=== PATIENT | female | born 1960 | race Caucasian/White ===

== ENCOUNTER 2021-10-09 04:18 | Inpatient (IN) | payer BC, SELFPAY ==
[2021-10-09] VITALS (13 sets, daily range): BP systolic 113–139; BP diastolic 60–76; PULSE 84–110; RESP 12–23; TEMP 36.4–36.8; O2SAT 95–100; BMI 23.2
--- NOTE | ~2021-10-09 | XR_ITS ---
EXAMINATION: XR CHEST CLINICAL INFORMATION: Rule out pneumonia COMPARISON: 09/03/2019 TECHNIQUE: Frontal view of the chest was obtained. FINDINGS: The lungs are well expanded. There is no focal consolidation, edema, or effusion. No pneumothorax. The cardiomediastinal silhouette is within normal limits. No acute osseous abnormality. XR/XR chest 1V IMPRESSION: Clear lungs
--- NOTE | ~2021-10-09 | CT_ITS ---
EXAMINATION: CT ABDOMEN AND PELVIS WITHOUT CONTRAST CLINICAL INFORMATION: UTI. Sepsis COMPARISON: None TECHNIQUE: Multidetector volumetric imaging was performed from the superior aspect of the liver through the pubic symphysis. Sagittal and coronal reformatted images were obtained on the technologist's workstation. This CT examination was performed using dose optimization techniques as appropriate, variously including the following: *Automated exposure control *Adjustment of mA and/or kV according to patient size (this includes techniques or standardized protocols for targeted exams where dose is matched to indication/reason for exam; i.e. extremities or head) *Use of iterative reconstruction technique DLP: 410 mGy-cm FINDINGS: LUNG BASES: The visualized lung bases are unremarkable. LIVER, GALLBLADDER, AND BILIARY TREE: Prominent liver noted with slightly cirrhotic contour and perihepatic ascites. No focal hepatic lesion. Liver does appear prominent. I do not see any intrahepatic biliary dilatation. Gallbladder surgically absent. PANCREAS: Unremarkable. SPLEEN: Prominent spleen but no splenic lesions or perisplenic collections. ADRENAL GLANDS: Slight thickening of the left adrenal. Adrenals otherwise unremarkable. KIDNEYS AND URETERS: No right or left hydronephrosis or calcification. Fat density lesion in the mid right kidney at 12 mm likely an angiomyolipoma. BLADDER: Bladder is distended. Air in the bladder is likely iatrogenic. As the patient recently been catheterized? GASTROINTESTINAL TRACT: There is no bowel obstruction or right or left lower quadrant inflammatory change. ABDOMINAL WALL: No significant hernia is appreciated. LYMPH NODES: Normal. VASCULAR: Aorta atherosclerotic but nonaneurysmal. PELVIC VISCERA: Uterus and adnexal structures unremarkable. No ascites deep in the pelvis. OSSEOUS STRUCTURES: Multilevel degenerative change. CT/CT abdomen pelvis wo con IMPRESSION: Distended bladder. Air in the bladder likely iatrogenic. Please correlate with recent catheterization history. Perihepatic ascites and cirrhotic appearing liver. No hydronephrosis. Fleischner guidelines were followed.
--- NOTE | 2021-10-09 04:38 | ECG_ITS ---
Test Reason : weakness Blood Pressure : / mmHG Vent. Rate : 102 BPM Atrial Rate : 102 BPM P-R Int : 150 ms QRS Dur : 088 ms QT Int : 334 ms P-R-T Axes : 054 006 037 degrees QTc Int : 435 ms Sinus tachycardia Otherwise normal ECG When compared with ECG of 03-SEP-2019 17:07, No significant change was found Referred By: Peggy Heart Electronically Signed By:Italo Sylvester
--- NOTE | 2021-10-09 05:12 | ED_ITS ---
HPI - General Adult General Chief complaint: Weakness Stated complaint: diabetic, high sugar, vomiting Time Seen by Provider: 10/09/21 04:38 Source: patient Mode of arrival: ambulatory Limitations: no limitations History of Present Illness HPI narrative: Patient comes to the emergency room complaining of nausea, vomiting, feeling weak. Patient states her blood sugars are ?all over the place? anywhere between 70 to 300+. Patient uses Lantus and Humalog. Patient states she is compliant with her insulin treatment. Patient has been dealing nausea and vomiting and labile blood sugars for several months. Patient states that her abdomen feels upset, no significant pain. No diarrhea. Patient denies UTI symptoms. Patient states that she has been coughing recently more than usual. Related Data Previous Rx's Medication Instructions Recorded cefuroxime axetil 500 mg tablet 500 mg PO BID #14 tabs 10/09/21 ondansetron HCl 4 mg tablet 4 mg PO Q6H PRN nausea and 10/09/21 vomiting #14 tabs Allergies Allergy/AdvReac Type Severity Reaction Status Date / Time No Known Allergies Allergy Unverified 12/22/19 17:08 [No Known Allergies*] Review of Systems Review of Systems: Constitutional : No Weight loss, No Fever, No Chills, No Night Sweats, No Fatigue, No Malaise ENT/Mouth : No Hearing loss, No Ear Pain, No Nasal Congestion, No Sinus Pain, No Hoarseness, No sore throat, No Rhinorrhea, No Swallowing Difficulty Eyes: No Eye Pain, No Swelling, No Redness, No Foreign Body, No Discharge, No Vision Changes Cardiovascular : No Chest Pain, No SOB, No Dyspnea on Exertion, No Orthopnea, No Edema, No Palpitations Respiratory : Complaining of new onset cough No Sputum, No Wheezing, No Smoke Exposure, No Dyspnea Gastrointestinal : Complaining of nausea vomiting, complaining of an upset stomach sedation, No Diarrhea, No Constipation, No abdominal Pain, No Hematochezia, No Melena Genitourinary : no irregular bleeding, No Dysuria, No Urinary Frequency, No Hematuria, No Urinary Incontinence, No Urgency, No Flank Pain, No Urinary Flow Changes, No Hesitancy Musculoskeletal : No joint pain, No Myalgias, No Joint Swelling Skin : No Skin Lesions, No rash Neuro : No Weakness, No Numbness, No Paresthesias, No Loss of Consciousness, No Dizziness, No Headache Psych : No Anxiety/Panic, No Depression, No SI/HI/AH/VH, No Social Issues, Heme/Lymph: No Bruising, No Bleeding,No Lymphadenopathy Endocrine : No Polyuria, No Polydipsia, No Temperature Intolerance, complaining of her sugars being labile [facility] Past Medical History Medical History Diabetes Social History Social History Advance Directives: No Physical Exam ED Vital Signs: Vital Signs - 24 hr 10/09/21 04:31 10/09/21 05:07 Temperature 97.5 F 97.9 F Pulse Rate 110 H 98 Respiratory Rate 20 18 Blood Pressure 130/75 132/71 Pulse Oximetry 99 99 Oxygen Delivery Method Room Air Room Air BMI result Body Mass Index 23.2 Const Other: Appearance: Alert. Oriented X3. No acute distress. Seems nauseous Eyes: Pupils equal, round and reactive to light. ENT: Pharynx normal. Neck: Normal inspection. Neck supple. No lymph nodes noted. No crepitus CVS: Normal heart rate and rhythm. Pulses normal. Normal S1 and S2 Respiratory: No respiratory distress. Breath sounds normal. No Wheezing. No rales Abdomen: Soft and nontender. No rigidity. No distention. Skin: Skin warm and dry. Normal skin color. Normal skin turgor. Multiple ecchymoses in abdomen from insulin injections. Extremities: No lower extremity edema. No Lacerations. No Rash Neuro: Oriented X 3. No motor deficit. No sensory deficit. Moving all extremities. No slurred speech. CN 2 through 12 grossly intact Psych: calm, cooperative, normal affect Course Course Course Narrative: On arrival to the emergency room, patient's blood sugar is 181. Labs and Imaging are pending. Patient will be getting IV fluids and Phenergan IV. Chest x-ray negative. Patient has KWADWO, weakness, vomiting, UTI. I discussed with the patient that I recommend admission. Patient states that she would prefer to go home and try medications at home. Patient states that if she feels worse, she will return to the emergency room. Patient is concerned that she used all of her sick time at work. I discussed with the patient that she will have a work note, and does not need to worry about this. Patient is hesitant to be admitted. Plan for now is to administer more fluids, start ceftriaxone IV. After 2 L of normal saline we will recheck the creatinine function. If patient's creatinine level improves and if she is able to tolerate p.o., we will try sending her home sign out given to Dr. Peña Medical Decision Making Lab Data Result diagrams: 10/09/21 05:23 10/09/21 05:23 Labs: Lab Results 10/09/21 10/09/21 10/09/21 Range/Units 05:23 05:23 05:23 WBC 8.0 (4.8-10.8) X10*3/uL RBC 3.68 L (4.20-5.50) X10*6/uL Hgb 12.5 (12.0-16.0) g/dl Hct 36.1 L (37.0-47.0) % MCV 98.1 H (80.0-98.0) fL MCH 34.0 H (27.0-33.0) pg MCHC 34.6 (31.0-35.0) g/dl RDW 14.6 (11.0-16.0) % Plt Count 72 L (160-400) X10*3/uL MPV 10.7 (9.4-12.3) fL Immature Gran % (Auto) 0.4 (0.0-0.4) % Neut % (Auto) 68.1 (45-73) % Lymph % (Auto) 19.9 L (20-40) % [place] % (Auto) 10.6 (2-11) % Eos % (Auto) 0.5 (0-4) % Baso % (Auto) 0.5 (0-2) % Lymph # (Auto) 1.6 (1.2-4.9) X10*3/uL [place] # (Auto) 0.9 (0.1-1.2) X10*3/uL Eos # (Auto) 0.0 (0.0-0.4) X10*3/uL Baso # (Auto) 0.0 (0.0-0.2) X10*3/uL Abs Immat Gran (auto) 0.03 (0.00-0.03) X10*3/uL Absolute Neuts (auto) 5.5 (2.0-8.3) x10*3/uL Absolute Nucleated RBC 0.000 (0.0-0.012) X10*3/uL Nucleated RBC % (auto) 0.0 (0.0-0.2) /100WBC Sodium 133 L (135-145) mmol/L Potassium 4.1 (3.3-5.1) mmol/L Chloride 95 L (96-108) mmol/L Carbon Dioxide 23 (22-29) mmol/L Anion Gap 19 (12-20) BUN 38 H (9-16) mg/dL Creatinine 2.38 H (0.5-1.4) mg/dL Estim Creat Clear Calc 20.1 Estimated GFR 21 Random Glucose 210 H (60-115) mg/dL Calcium 9.9 (8.4-10.2) mg/dL Total Bilirubin 1.3 H (0.0-1.0) mg/dL Direct Bilirubin 0.8 H (0.0-0.5) mg/dL AST 169 H (5-31) U/L ALT 60 H (0-31) U/L Alkaline Phosphatase 268 H (39-117) U/L Troponin I High Sens 4.5 (<3.5-17.0) ng/L Total Protein 8.6 H (6.5-8.0) g/dL Albumin 3.5 (3.5-5.0) g/dL Urine Color Urine Appearance Urine pH (5.0-8.0) Ur Specific [place] (1.005-1.025) Urine Protein (NEG-TRACE) MG/DL Urine Glucose (UA) (NEG) MG/DL Urine Ketones (NEG) MG/DL Urine Blood (NEG) Urine Nitrite (NEG) Ur Leukocyte Esterase (NEG) Urine RBC (0) /HPF Urine WBC (0-4) /HPF Ur Squamous Epith Cells /LPF Urine Bacteria /LPF Urine Mucus /LPF Acetone, Qual (Negative) COVID-19 (SRI) (Negative) COVID-19 Clin Com 10/09/21 10/09/21 10/09/21 Range/Units 05:23 05:23 06:11 WBC (4.8-10.8) X10*3/uL RBC (4.20-5.50) X10*6/uL Hgb (12.0-16.0) g/dl Hct (37.0-47.0) % MCV (80.0-98.0) fL MCH (27.0-33.0) pg MCHC (31.0-35.0) g/dl RDW (11.0-16.0) % Plt Count (160-400) X10*3/uL MPV (9.4-12.3) fL Immature Gran % (Auto) (0.0-0.4) % Neut % (Auto) (45-73) % Lymph % (Auto) (20-40) % [place] % (Auto) (2-11) % Eos % (Auto) (0-4) % Baso % (Auto) (0-2) % Lymph # (Auto) (1.2-4.9) X10*3/uL [place] # (Auto) (0.1-1.2) X10*3/uL Eos # (Auto) (0.0-0.4) X10*3/uL Baso # (Auto) (0.0-0.2) X10*3/uL Abs Immat Gran (auto) (0.00-0.03) X10*3/uL Absolute Neuts (auto) (2.0-8.3) x10*3/uL Absolute Nucleated RBC (0.0-0.012) X10*3/uL Nucleated RBC % (auto) (0.0-0.2) /100WBC Sodium (135-145) mmol/L Potassium (3.3-5.1) mmol/L Chloride (96-108) mmol/L Carbon Dioxide (22-29) mmol/L Anion Gap (12-20) BUN (9-16) mg/dL Creatinine (0.5-1.4) mg/dL Estim Creat Clear Calc Estimated GFR Random Glucose (60-115) mg/dL Calcium (8.4-10.2) mg/dL Total Bilirubin (0.0-1.0) mg/dL Direct Bilirubin (0.0-0.5) mg/dL AST (5-31) U/L ALT (0-31) U/L Alkaline Phosphatase (39-117) U/L Troponin I High Sens (<3.5-17.0) ng/L Total Protein (6.5-8.0) g/dL Albumin (3.5-5.0) g/dL Urine Color YELLOW Urine Appearance CLOUDY Urine pH 7.5 (5.0-8.0) Ur Specific [place] 1.015 (1.005-1.025) Urine Protein 2+ H (NEG-TRACE) MG/DL Urine Glucose (UA) 250 H (NEG) MG/DL Urine Ketones NEG (NEG) MG/DL Urine Blood 3+ H (NEG) Urine Nitrite NEG (NEG) Ur Leukocyte Esterase 3+ H (NEG) Urine RBC 1-4 (0) /HPF Urine WBC 76-150 H (0-4) /HPF Ur Squamous Epith Cells 2+ /LPF Urine Bacteria 4+ /LPF Urine Mucus TRACE /LPF Acetone, Qual Negative (Negative) COVID-19 (SRI) Negative (Negative) COVID-19 Clin Com See Note Imaging Data Chest x-ray: Radiologist's impression: INDINGS: The lungs are well expanded. There is no focal consolidation, edema, or effusion. No pneumothorax. The cardiomediastinal silhouette is within normal limits. No acute osseous abnormality. XR/XR chest 1V IMPRESSION: Clear lungs ? Discharge Plan Discharge Clinical Impression: UTI (urinary tract infection), KWADWO (acute kidney injury), Weakness Patient Disposition: Still a Patient Instructions: Acute Kidney Injury (DC), Urinary Tract Infection in Women (ED) Additional Instructions: Please follow-up with your primary care physician tomorrow. If you have any worsening or new symptoms, please return to the emergency room or call 911 Prescriptions: New cefuroxime axetil 500 mg tablet 500 mg PO BID Qty: 14 0RF ondansetron HCl 4 mg tablet 4 mg PO Q6H PRN (Reason: nausea and vomiting) Qty: 14 0RF
[2021-10-09 05:29] LABS: Basophils Percent Auto 0.5 % (0-2); Eosinophils Percent Auto 0.5 % (0-4); Hematocrit 36.1 % (37.0-47.0); Hemoglobin 12.5 g/dl (12.0-16.0); Imm Gran Abs Auto 0.03 X10*3/uL (0.00-0.03); Imm Gran Pct Auto 0.4 % (0.0-0.4); Lymphocytes Absolute Auto 1.6 X10*3/uL (1.2-4.9); Lymphocytes Percent Auto 19.9 % (20-40); Mean Corpuscular HGB Conc 34.6 g/dl (31.0-35.0); Mean Corpuscular Volume 98.1 fL (80.0-98.0); Mean Platelet Volume 10.7 fL (9.4-12.3); Monocytes Absolute Auto 0.9 X10*3/uL (0.1-1.2); Monocytes Percent Auto 10.6 % (2-11); Neutrophils Absolute Auto 5.5 x10*3/uL (2.0-8.3); Neutrophils Percent Auto 68.1 % (45-73); Red Blood Count 3.68 X10*6/uL (4.20-5.50); Red Cell Distribution Width 14.6 % (11.0-16.0)
[2021-10-09 05:30] LABS: MANUAL DIFF FLAG NO; Platelet Count 72 X10*3/uL (160-400)
[2021-10-09] MEDS: 0.9 % Sodium Chloride 1,000 ML 999 ML IVCONT ×2 (05:40→08:37)
[2021-10-09 05:43] LABS: COVID-19 Test Negative (Negative)
[2021-10-09 05:48] LABS: Acetone, serum QL Negative (Negative)
[2021-10-09 05:49] LABS: Alanine Aminotransferase 60 U/L (0-31); Albumin Level 3.5 g/dL (3.5-5.0); Alkaline Phosphatase 268 U/L (39-117); Anion Gap 19 (12-20); Aspartate Amino Transferase 169 U/L (5-31); Bilirubin Direct 0.8 mg/dL (0.0-0.5); Bilirubin Total 1.3 mg/dL (0.0-1.0); Blood Urea Nitrogen 38 mg/dL (9-16); Calcium 9.9 mg/dL (8.4-10.2); Carbon Dioxide 23 mmol/L (22-29); Chloride 95 mmol/L (96-108); Creatinine Clr Calc Pharmacy 20.1; Estimated Glomerular Filt Rate 21; Glucose Random 210 mg/dL (60-115); Potassium 4.1 mmol/L (3.3-5.1); Sodium 133 mmol/L (135-145); Total Protein 8.6 g/dL (6.5-8.0)
[2021-10-09 05:50] LABS: Troponin-I High Sensitivity 4.5 ng/L (<3.5-17.0)
[2021-10-09 06:17] LABS: Appearance Urine CLOUDY; Color Urine YELLOW; Glucose Urine UA 250 MG/DL (NEG); Leukocyte Esterase Urine 3+ (NEG); Nitrite Urine NEG (NEG); PH 7.5 (5.0-8.0); Specific Gravity - Urine 1.015 (1.005-1.025); UACC Culture Trigger YES; Urine Blood 3+ (NEG); Urine Ketones NEG (NEG); Urine Protein 2+ MG/DL (NEG-TRACE)
[2021-10-09 06:23] LABS: Bacteria Urine 4+ /LPF; Mucus Urine TRACE /LPF; Squamous Epithelial Cell Urine 2+ /LPF
[2021-10-09] MEDS: cefTRIAXone sodium 1 GM in 0.9 % Sodium Chloride 50 ML IV (06:37)
--- NOTE | 2021-10-09 06:53 | PC.NURSE ---
Rocephin IV was administered per MD order. Approximately 30 minutes after Rocephine was initiated blood cultures were requested. Therefore, IV Abx were initiated prior to obtaining blood cultures.
[2021-10-09 07:04] LABS: Glucose, Whole Blood 181 mg/dL (60-115)
[2021-10-09 08:28] LABS: Anion Gap 16 (12-20); Blood Urea Nitrogen 35 mg/dL (9-16); Carbon Dioxide 24 mmol/L (22-29); Chloride 99 mmol/L (96-108); Creatinine Clr Calc Pharmacy 21.8; Estimated Glomerular Filt Rate 23; Glucose Random 209 mg/dL (60-115); Potassium 4.2 mmol/L (3.3-5.1); Sodium 135 mmol/L (135-145)
[2021-10-09 08:32] LABS: Lactic Acid 4.2 mmol/L (0.5-2.0)
[2021-10-09] MEDS: ondansetron HCL 4 MG/2 ML VIAL IVPUSH (08:46)
--- NOTE | 2021-10-09 08:47 | PC.NURSE ---
pt vomiting and noteable tremors. spoke with dr todd and he is aware of current status, pt appears to be in withdrawal, her POC was 210. IV fluids are infusing
[2021-10-09] MEDS: Famotidine/PF 20 MG/2 ML VIAL IVPUSH (09:02)
[2021-10-09] MEDS: LORazepam 2 MG/ML VIAL 1 MG IVPUSH (09:02)
--- NOTE | 2021-10-09 09:31 | PC.NURSE ---
up with assistance to bedside commode void approx 500ml
[2021-10-09] MEDS: Piperacillin Sodium/Tazobactam 3.375 GM in 0.9 % Sodium Chloride 50 ML IV (09:43)
[2021-10-09 09:45] LABS: Reflex Lactate? Lactic Acid Added
[2021-10-09 10:30] LABS: ~Lactic Acid-LAB USE ONLY 3.8 mmol/L (0.5-2.0)
--- NOTE | 2021-10-09 10:43 | P.HPHOSP_ITS ---
History of Present Illness Date of Service: 10/09/21 Chief Complaint: labile blood sugars This is a 60 yo F with a PMH of daily alcohol use, cirrhosis by imaging, IDDM, HLD who presents to [facility] ED with complaints of labile blood sugars (many HIGH readings and many low in the 40-60s) with associated urinary frequency and foul smelling urine. She initially denied any symptoms to the ED providers, but when queried re: positive UA -- she endorsed positive symptoms. She reports that in addition to the symptoms, she also has had difficulty keeping food down and this has been on going for a few months. She reports that there is no abdominal pain, but rather just feeling full and nauseous. She reports decreased oral intake for solids, but is able to keep liquids down. She denies any hematemesis or diarrhea. She denies any fevers or chills. She reports she does not drink much. Upon further questioning, she endorses few shorts of spirits a few beers daily. She denies withdrawal symptoms. She reports she has been told she has cirrhosis. Work up in the ED revealed a positive UA and CT scan showing air in the bladder. She has KWADWO as well. She will be admitted for further treatment. Review of Systems Review of Systems: negative except HPI [facility] Medical History (Updated 10/09/21 @ 10:55 by Valentin Morgan MD) Cirrhosis Diabetes Hyperlipidemia Pertinent family history: Denies any known FH Surgical History (Updated 10/09/21 @ 10:56 by Valentin Morgan MD) History of cholecystectomy Social History Alcohol intake: current Alcohol intake frequency: 3 or more drinks per day Alc ohol type: beer and hard liquor Use of substances other than those prescribed or required for medical reasons: No Substance Use Type: Marijuana Substance Use Frequency: Occasionally Any prior treatment program specific to substance use: No Advance Directives: No Patient : No Meds Allergies Allergy/AdvReac Type Severity Reaction Status Date / Time No Known Allergies Allergy Unverified 12/22/19 17:08 [No Known Allergies*] Active Medications: Current Medications Pharmacy Consult (Consult Rx Perform Med Rec) 1 each MISCELLANE ONCE PRN PRN Reason: Consult order Physical Exam Vital Signs and Narrative: Vital Signs: Last Vital Signs Temp 98.3 F 10/09/21 06:54 Pulse 86 10/09/21 10:12 Resp 14 10/09/21 10:12 BP 129/73 10/09/21 10:12 Pulse Ox 100 10/09/21 10:12 O2 Del Method 10/09/21 10:12 BMI result Body Mass Index 23.2 Const: Other: Constitutional - Awake and Alert, No apparent distress Eyes - PERRLA, EOMI Cardiovascular - S1S2, RRR, No edema Respiratory - Normal lung expansion, Normal respiratory effort, No respiratory distress, CTA bilaterally Gastrointestinal - NT / ND; +BS; No rebound or guarding - No CVA tenderness Extremities - no calf tenderness bilaterally, no swelling Musculoskeletal - Normal inspection, normal ROM Skin - Warm/Dry Neurological - Alert & oriented x3, No focal deficit Psychological - Appropriate affect Results Labs CBC and Chem 7: 10/09/21 05:23 10/09/21 07:40 Labs: Laboratory Results - last 24 hr 10/09/21 10/09/21 10/09/21 04:24 05:23 05:23 MCV 98.1 H MCH 34.0 H MCHC 34.6 RDW 14.6 Plt Count 72 L MPV 10.7 Immature Gran % (Auto) 0.4 Neut % (Auto) 68.1 Lymph % (Auto) 19.9 L [place] % (Auto) 10.6 Eos % (Auto) 0.5 Baso % (Auto) 0.5 Lymph # (Auto) 1.6 [place] # (Auto) 0.9 Eos # (Auto) 0.0 Baso # (Auto) 0.0 Abs Immat Gran (auto) 0.03 Absolute Neuts (auto) 5.5 Absolute Nucleated RBC 0.000 Nucleated RBC % (auto) 0.0 Anion Gap 19 Estim Creat Clear Calc 20.1 Estimated GFR 21 POC Glucose 181 H Random Glucose 210 H Lactic Acid Lactic Acid F/U @ 2Hr Calcium 9.9 Total Bilirubin 1.3 H Direct Bilirubin 0.8 H AST 169 H ALT 60 H Alkaline Phosphatase 268 H Troponin I High Sens Total Protein 8.6 H Albumin 3.5 Urine Color Urine Appearance Urine pH Ur Specific [place] Urine Protein Urine Glucose (UA) Urine Ketones Urine Blood Urine Nitrite Ur Leukocyte Esterase Urine RBC Urine WBC Ur Squamous Epith Cells Urine Bacteria Urine Mucus Acetone, Qual COVID-19 (SRI) COVID-19 Clin Com 10/09/21 10/09/21 10/09/21 05:23 05:23 05:23 MCV MCH MCHC RDW Plt Count MPV Immature Gran % (Auto) Neut % (Auto) Lymph % (Auto) [place] % (Auto) Eos % (Auto) Baso % (Auto) Lymph # (Auto) [place] # (Auto) Eos # (Auto) Baso # (Auto) Abs Immat Gran (auto) Absolute Neuts (auto) Absolute Nucleated RBC Nucleated RBC % (auto) Anion Gap Estim Creat Clear Calc Estimated GFR POC Glucose Random Glucose Lactic Acid Lactic Acid F/U @ 2Hr Calcium Total Bilirubin Direct Bilirubin AST ALT Alkaline Phosphatase Troponin I High Sens 4.5 Total Protein Albumin Urine Color Urine Appearance Urine pH Ur Specific [place] Urine Protein Urine Glucose (UA) Urine Ketones Urine Blood Urine Nitrite Ur Leukocyte Esterase Urine RBC Urine WBC Ur Squamous Epith Cells Urine Bacteria Urine Mucus Acetone, Qual Negative COVID-19 (SRI) Negative COVID-19 Clin Com See Note 10/09/21 10/09/21 10/09/21 06:11 07:40 07:40 MCV MCH MCHC RDW Plt Count MPV Immature Gran % (Auto) Neut % (Auto) Lymph % (Auto) [place] % (Auto) Eos % (Auto) Baso % (Auto) Lymph # (Auto) [place] # (Auto) Eos # (Auto) Baso # (Auto) Abs Immat Gran (auto) Absolute Neuts (auto) Absolute Nucleated RBC Nucleated RBC % (auto) Anion Gap 16 Estim Creat Clear Calc 21.8 Estimated GFR 23 POC Glucose Random Glucose 209 H Lactic Acid 4.2 H* Lactic Acid F/U @ 2Hr Calcium 9.0 D Total Bilirubin Direct Bilirubin AST ALT Alkaline Phosphatase Troponin I High Sens Total Protein Albumin Urine Color YELLOW Urine Appearance CLOUDY Urine pH 7.5 Ur Specific [place] 1.015 Urine Protein 2+ H Urine Glucose (UA) 250 H Urine Ketones NEG Urine Blood 3+ H Urine Nitrite NEG Ur Leukocyte Esterase 3+ H Urine RBC 1-4 Urine WBC 76-150 H Ur Squamous Epith Cells 2+ Urine Bacteria 4+ Urine Mucus TRACE Acetone, Qual COVID-19 (SRI) COVID-19 Clin Com 10/09/21 10:04 MCV MCH MCHC RDW Plt Count MPV Immature Gran % (Auto) Neut % (Auto) Lymph % (Auto) [place] % (Auto) Eos % (Auto) Baso % (Auto) Lymph # (Auto) [place] # (Auto) Eos # (Auto) Baso # (Auto) Abs Immat Gran (auto) Absolute Neuts (auto) Absolute Nucleated RBC Nucleated RBC % (auto) Anion Gap Estim Creat Clear Calc Estimated GFR POC Glucose Random Glucose Lactic Acid Lactic Acid F/U @ 2Hr 3.8 H* Calcium Total Bilirubin Direct Bilirubin AST ALT Alkaline Phosphatase Troponin I High Sens Total Protein Albumin Urine Color Urine Appearance Urine pH Ur Specific [place] Urine Protein Urine Glucose (UA) Urine Ketones Urine Blood Urine Nitrite Ur Leukocyte Esterase Urine RBC Urine WBC Ur Squamous Epith Cells Urine Bacteria Urine Mucus Acetone, Qual COVID-19 (SRI) COVID-19 Clin Com Imaging Radiologist's Impressions: Impressions Chest X-Ray 10/09/21 05:49 IMPRESSION: Clear lungs Abdomen/Pelvis CT 10/09/21 09:05 IMPRESSION: Distended bladder. Air in the bladder likely iatrogenic. Please correlate with recent catheterization history. Perihepatic ascites and cirrhotic appearing liver. No hydronephrosis. Fleischner guidelines were followed. Assessment and Plan (1) KWADWO (acute kidney injury): Status: Acute (2) UTI (urinary tract infection): Status: Acute Plan This is a 60 yo F with a PMH of IDDM, Cirrhosis, Daily alcohol use, HLD who presents to the ED with labile blood sugars. Her work up reveals UTI and KWADWO. She will be admitted for further work up and treatment. 1. Acute Kidney Injury LR @ 100 cc/hr x 2L repeat chem tomorrow 2. UTI IV rocephin patient does not have severe sepsis at this time 3. Lactic acidosis possiblye secondary to liver disease trend 4. Alcoholi liver disease evidence of cirrhosis on imaging low platelets and elevated LFTs likely secondary to this 5. DM Basal+bolus patient endorses poor oral intake on going for several months; will see how her PO intake it. May need to evaluate for diabetic gastroparesis basal+bolus (med rec pending) 6. Alcohol abuse and dependence denies prior withdrawal symptoms, but appears anxious. Will monitor with CIWA for now and start phenobarb if she starts to exhibit withdrawal symptoms. Patient does not seem to think the amouth of alcohol she drinks is excessive despite evidence and knowledge of cirrhosis. Have explained to her that she needs complete alcohol cessation. Will consult CARE team. Full Code DVT pptx -- mechanical / early ambulation due to thrombocytopenia In light of the patients UTI + KWADWO -- I anticipate a medically necessary inpatient hospitalization which is likely to span at least 2 midnights for treatment and monitoring the reponse for the above mentioned conditions. This cannot be completed in a less acute setting. Quality Stroke Does the patient have a stroke diagnosis?: No VTE Prior VTE?: No VTE Risk Level:: Medical - moderate - high VTE Device Contraindication: N/A - Device Ordered VTE Drug Contraindication: Treatment Not Indicated
--- NOTE | 2021-10-09 10:46 | PC.NURSE ---
pt appears more restful. vss remain stable.
[2021-10-09] MEDS: Lactated Ringers 1,000 ML 100 ML IVCONT (11:15)
--- NOTE | 2021-10-09 11:23 | PHA.MEDREC ---
Pharmacy Consult ? Medication Reconciliation Pharmacy has completed the medication reconciliation. Spoke with patient in the ED
[2021-10-09 11:59] LABS: Glucose, Whole Blood 97 mg/dL (60-115)
[2021-10-09 12:10] LABS: Reflex Lactate? 2 Y
[2021-10-09 12:45] LABS: ~Lactic Acid-LAB USE ONLY 3.5 mmol/L (0.5-2.0)
--- NOTE | 2021-10-09 12:47 | PC.NURSE ---
pt napping periodically, she states she is feeling hungry. she has not vomited since she was medicated with ativan and zofran. she is not displaying any withdrawal sxs currently
[2021-10-09] MEDS: PHENobarbitaL 30 MG TABLET 150 MG PO ×2 (16:13→19:38)
[2021-10-09] MEDS: Piperacillin Sodium/Tazobactam 2.25 GM in 0.9 % Sodium Chloride 50 ML IV ×2 (16:14→22:28)
[2021-10-09 17:56] LABS: Glucose, Whole Blood 245 mg/dL (60-115)
[2021-10-09] MEDS: Insulin Lispro 100 UNIT/ML 3 ML VIAL SUBCUT ×2 (18:09→22:18)
--- NOTE | 2021-10-09 19:22 | PC.NURSE ---
REPORT GIVEN FOR TRANSFER TO OVERFLOW
--- NOTE | 2021-10-09 19:41 | PC.NURSE ---
pt transferred to overflow by experimental technician
[2021-10-09 22:08] LABS: Glucose, Whole Blood 271 mg/dL (60-115)
[2021-10-09] MEDS: Atorvastatin Calcium 80 MG TABLET PO (22:16)
[2021-10-09] MEDS: PHENobarbitaL 15 MG TABLET 45 MG PO (22:17)
[2021-10-09] MEDS: Insulin Glargine,Hum.rec.anlog 100 UNIT/ML 10 ML VIAL 38 UNIT SUBCUT (22:17)
[2021-10-10] VITALS: BP 111/59; PULSE 86; RESP 18; TEMP 37.1; O2SAT 98
[2021-10-10] MEDS: Lactated Ringers 1,000 ML 100 ML IVCONT (01:59)
[2021-10-10 02:04] VITALS: BMI 24.8
[2021-10-10] MEDS: Piperacillin Sodium/Tazobactam 2.25 GM in 0.9 % Sodium Chloride 50 ML IV ×4 (05:25→20:47)
[2021-10-10 06:49] LABS: Hematocrit 30.5 % (37.0-47.0); Hemoglobin 10.2 g/dl (12.0-16.0); Mean Corpuscular HGB Conc 33.4 g/dl (31.0-35.0); Mean Corpuscular Hemoglobin 34.6 pg (27.0-33.0); Mean Corpuscular Volume 103.4 fL (80.0-98.0); Red Blood Count 2.95 X10*6/uL (4.20-5.50); Red Cell Distribution Width 14.7 % (11.0-16.0); White Blood Count 3.7 X10*3/uL (4.8-10.8)
[2021-10-10 07:01] LABS: Platelet Count 33 X10*3/uL (160-400)
[2021-10-10 07:15] LABS: Anion Gap 12 (12-20); Blood Urea Nitrogen 23 mg/dL (9-16); Carbon Dioxide 23 mmol/L (22-29); Chloride 103 mmol/L (96-108); Creatinine Clr Calc Pharmacy 23.8; Estimated Glomerular Filt Rate 23; Glucose Random 160 mg/dL (60-115); Potassium 3.6 mmol/L (3.3-5.1); Sodium 134 mmol/L (135-145)
[2021-10-10 07:23] LABS: Glucose, Whole Blood 161 mg/dL (60-115)
[2021-10-10 07:36] VITALS: BP 119/72; PULSE 82; RESP 18; TEMP 35.9; O2SAT 99
[2021-10-10] MEDS: Insulin Lispro 100 UNIT/ML 3 ML VIAL SUBCUT ×4 (09:11→20:49)
[2021-10-10] MEDS: 0.9 % Sodium Chloride Flush 3 ML SYRINGE IVFLUSH ×3 (09:12→20:50)
[2021-10-10] MEDS: PHENobarbitaL 15 MG TABLET 45 MG PO ×2 (09:13→20:48)
--- NOTE | 2021-10-10 10:06 | MHC.CM.PN ---
CM met with Patient and her /HCP/Tuan @ [phone] at bedside. 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 Home/no services is the goal and CM has initiated and will follow for dc planning. PCP is Dr. Smita You and Patient has received Moderna/Covid vax X2.
--- NOTE | 2021-10-10 11:27 | HO.PM.IMPN ---
Subjective Subjective Date of Service: 10/10/21 Interval History: Seen in f/u for labile blood sugars, KWADWO that is new, UTI, pancytopenia Interval history: feels better, renal function remains high Review of Systems no fever no dysuria Physical Exam Vital Signs: Vital Signs: Last Vital Signs Temp 96.7 F L 10/10/21 07:36 Pulse 82 10/10/21 07:36 Resp 18 10/10/21 07:36 BP 119/72 10/10/21 07:36 Pulse Ox 99 10/10/21 07:36 O2 Del Method 10/10/21 07:36 BMI result Body Mass Index 24.8 Const: Other: General: AO X 3, no acute distress Resp: CTA bilateral CVS: S1,S2,RRR GI: +BS, NT, no distention Skin: No rash Neuro: motor grossly intact Psych: appropriate affect Objective Data Active Medications Atorvastatin Calcium (Atorvastatin Calcium 80 Mg Tablet) 80 mg PO BEDTIME [facility] Last Admin: 10/09/21 22:16 Dose: 80 mg Documented By: MOIZ Piperacillin Sod/Tazobactam (Sod 2.25 gm/ Sodium Chloride) 50 mls @ 100 mls/hr IV Q6H [facility] Last Infusion: 10/10/21 10:18 Dose: 0 mls/hr Documented By: KATIANA Insulin Glargine (Insulin Glargine,Hum.Rec.Anlog 100 Unit/Ml 10 Ml Vial) 38 unit SUBCUT BEDTIME [facility] Last Admin: 10/09/21 22:17 Dose: 38 unit Documented By: MOIZ Insulin Human Lispro (Insulin Lispro 100 Unit/Ml 3 Ml Vial) 0 unit SUBCUT QIDACHS [facility]; Protocol Last Admin: 10/10/21 09:11 Dose: 2 unit Documented By: KATIANA Pharmacy Consult (Consult Rx Perform Med Rec) 1 each MISCELLANE ONCE PRN PRN Reason: Consult order Pharmacy Consult (Consult Rx Etoh Phenob Po Only) 1 each MISCELLANE ONCE PRN; Protocol PRN Reason: Consult order Phenobarbital (Phenobarbital 15 Mg Tablet) 45 mg PO BID [facility]; Protocol Stop: 10/11/21 09:01 Last Admin: 10/10/21 09:13 Dose: 45 mg Documented By: KATIANA Phenobarbital (Phenobarbital 30 Mg Tablet) 30 mg PO BID [facility]; Protocol Stop: 10/13/21 09:01 Phenobarbital (Phenobarbital 30 Mg Tablet) 30 mg PO DAILY [facility]; Protocol Stop: 10/15/21 09:01 Sodium Chloride (0.9 % Sodium Chloride Flush 3 Ml Syringe) 3 ml IVFLUSH QSHIFT [facility] Last Admin: 10/10/21 09:12 Dose: 3 ml Documented By: KATIANA Labs CBC & Chem 7: 10/10/21 05:55 10/10/21 05:55 Labs: Laboratory Results - last 24 hr 10/09/21 10/09/21 10/09/21 11:55 12:26 17:51 MCV MCH MCHC RDW Plt Count MPV Absolute Nucleated RBC Nucleated RBC % (auto) Anion Gap Estim Creat Clear Calc Estimated GFR POC Glucose 97 245 H Random Glucose Lactic Acid F/U @ 4Hr 3.5 H* Calcium 10/09/21 10/10/21 10/10/21 22:04 05:55 05:55 MCV 103.4 H D MCH 34.6 H MCHC 33.4 RDW 14.7 Plt Count 33 L D MPV 11.0 Absolute Nucleated RBC 0.000 Nucleated RBC % (auto) 0.0 Anion Gap 12 Estim Creat Clear Calc 23.8 Estimated GFR 23 POC Glucose 271 H Random Glucose 160 H Lactic Acid F/U @ 4Hr Calcium 8.0 L D 10/10/21 07:20 MCV MCH MCHC RDW Plt Count MPV Absolute Nucleated RBC Nucleated RBC % (auto) Anion Gap Estim Creat Clear Calc Estimated GFR POC Glucose 161 H Random Glucose Lactic Acid F/U @ 4Hr Calcium Microbiology Microbiology Results: Microbiology 10/09/21 07:40 Blood Culture - Preliminary Blood - Venous No growth after 24 hours. 10/09/21 07:40 Blood Culture - Preliminary Blood - Venous No growth after 24 hours. Assessment and Plan (1) UTI (urinary tract infection): Status: Acute (2) KWADWO (acute kidney injury): Status: Acute (3) Weakness: Status: Acute (4) Diabetes: Status: Acute Plan 60 yo F with a PMH of IDDM, Cirrhosis, Daily alcohol use, HLD who presents to the ED with labile blood sugars. Her work up reveals UTI and KWADWO. She will be admitted for further work up and treatment. 1. Acute Kidney Injury--likely pre renal, Cr not at baseline wath for hepatorenal renal consult LR @ 100 cc/hr x 2L repeat chem tomorrow 2. UTI Zosyn patient does not have severe sepsis at this time, decreasing platlets is due to baseline chronic liver disease and dilutional overnight with IVF and lower WBC is consistent with leukopenia from chronic disease not sepsis and come down following antibiotics 3. Lactic acidosis possiblye secondary to liver disease no need to repeat at this time 4. Alcoholi liver disease evidence of cirrhosis on imaging low platelets and elevated LFTs likely secondary to this advise to stop drinking 5. DM Basal+bolus patient endorses poor oral intake on going for several months; will see how her PO intake it. May need to evaluate for diabetic gastroparesis basal+bolus 6. Alcohol abuse and dependence--high risk for withdrawal -continue Phenobarbital DVT pptx -- mechanical / early ambulation due to thrombocytopenia Inpatient need: KWADWO that needs IVF for corection, complicated UTI needing IV Abx, and labile blood sugars that need med adjustment Quality Stroke Does the patient have a stroke diagnosis?: No VTE Prior VTE?: No VTE Risk Level:: Medical - moderate - high VTE Device Contraindication: N/A - Device Ordered VTE Drug Contraindication: Treatment Not Indicated
[2021-10-10 11:42] LABS: Glucose, Whole Blood 283 mg/dL (60-115)
[2021-10-10] MEDS: 0.9 % Sodium Chloride 1,000 ML 50 ML IV (12:06)
--- NOTE | 2021-10-10 15:59 | MHC.RECOVRN ---
Met with pt in 461 after consult placed to CARE Team for alcohol use. Pt sitting in bed, awake, alert, guarded and difficult to engage in conversation. Pt reports occasional alcohol use, at times stating it's just on the weekends and other times after work. Pt reports a few beers and a couple nips or shots when drinking. Pt reports alcohol has not interfered with daily activities such as driving, work, or relationships. 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 Pt denies ever experiencing withdrawal symptoms, states Yesterday's tremors were because I was cold. Pt at first denies ever receiving treatment or support for alcohol use, however, during conversation did say that she has attended AA in the past and did not find it helpful. Pt reports drinks occasionally as well but is supportive in helping pt decrease use. Pt educated regarding community supports and services, adamantly does not want information nor be admitted to any inpatient programs. Pt educated regarding Recovery Coaches as well as medications to help with cravings. Pt declines referrals at this time. Pt provided with written resources as well as t/w contact information if needed.
[2021-10-10 16:00] VITALS: BP 103/57; PULSE 88; RESP 18; TEMP 36.8; O2SAT 97
[2021-10-10 16:49] LABS: Glucose, Whole Blood 320 mg/dL (60-115)
[2021-10-10 19:53] VITALS: BP 113/58; PULSE 94; RESP 18; TEMP 36.8; O2SAT 97
[2021-10-10 20:20] LABS: Glucose, Whole Blood 243 mg/dL (60-115)
[2021-10-10] MEDS: Atorvastatin Calcium 80 MG TABLET PO (20:48)
[2021-10-10] MEDS: Insulin Glargine,Hum.rec.anlog 100 UNIT/ML 10 ML VIAL 38 UNIT SUBCUT (20:48)
[2021-10-10 23:48] VITALS: BP 120/58; PULSE 85; RESP 18; TEMP 36.9; O2SAT 98
[2021-10-11] MEDS: Piperacillin Sodium/Tazobactam 2.25 GM in 0.9 % Sodium Chloride 50 ML IV ×2 (05:25→10:48)
[2021-10-11 07:23] LABS: Glucose, Whole Blood 167 mg/dL (60-115)
[2021-10-11] MEDS: Insulin Lispro 100 UNIT/ML 3 ML VIAL SUBCUT ×2 (07:54→12:09)
[2021-10-11 07:55] LABS: Anion Gap 11 (12-20); Blood Urea Nitrogen 25 mg/dL (9-16); Calcium 7.9 mg/dL (8.4-10.2); Carbon Dioxide 21 mmol/L (22-29); Chloride 106 mmol/L (96-108); Creatinine Clr Calc Pharmacy 18.2; Estimated Glomerular Filt Rate 17; Glucose Random 186 mg/dL (60-115); Potassium 4.1 mmol/L (3.3-5.1); Sodium 134 mmol/L (135-145)
[2021-10-11] MEDS: PHENobarbitaL 15 MG TABLET 45 MG PO (07:55)
[2021-10-11 08:00] VITALS: BP 100/59; PULSE 86; RESP 20; TEMP 36.1; O2SAT 100
--- NOTE | 2021-10-11 08:52 | PM.PNNEP ---
Subjective Subjective Date of Service: 10/11/21 Interval history: Seen in f/u for labile blood sugars, KWADWO that is new, UTI, pancytopenia Interval history: feels better, renal function remains high Physical Exam Vital Signs: Vital Signs: Last Vital Signs Temp 96.9 F 10/11/21 08:00 Pulse 86 10/11/21 08:00 Resp 20 10/11/21 08:00 BP 100/59 L 10/11/21 08:00 Pulse Ox 100 10/11/21 08:00 O2 Del Method 10/11/21 08:00 BMI result Body Mass Index 24.8 Const: Other: General: AO X 3, no acute distress Resp: CTA bilateral CVS: S1,S2,RRR GI: +BS, NT, no distention Skin: No rash Neuro: motor grossly intact Psych: appropriate affect Objective Data Labs CBC & Chem 7: 10/10/21 05:55 10/11/21 06:44 Labs: Laboratory Results - last 24 hr 10/10/21 10/10/21 10/10/21 11:39 15:59 20:05 Sodium Potassium Chloride Carbon Dioxide Anion Gap BUN Creatinine Estim Creat Clear Calc Estimated GFR POC Glucose 283 H 320 H 243 H Random Glucose Calcium 10/11/21 10/11/21 06:44 07:19 Sodium 134 L Potassium 4.1 Chloride 106 Carbon Dioxide 21 L Anion Gap 11 L BUN 25 H Creatinine 2.87 H Estim Creat Clear Calc 18.2 Estimated GFR 17 POC Glucose 167 H Random Glucose 186 H Calcium 7.9 L Microbiology Microbiology Results: Microbiology 10/09/21 Unknown Urine clean catch - Clean Catch Midstream Urine Culture - Final Escherichia coli 10/09/21 07:40 Blood - Venous Blood Culture - Preliminary No growth after 24 hours. 10/09/21 07:40 Blood - Venous Blood Culture - Preliminary No growth after 24 hours. Procedures Date of Service Date of Service: 10/11/21 Assessment & Plan Assessment and plan (1) UTI (urinary tract infection): Status: Acute (2) KWADWO (acute kidney injury): Status: Acute (3) Weakness: Status: Acute (4) Diabetes: Status: Acute Plan 60 yo F with a PMH of IDDM, Cirrhosis, Daily alcohol use, HLD who presents to the ED with labile blood sugars. Her work up reveals UTI and KWADWO. She will be admitted for further work up and treatment. 1. Acute Kidney Injury--likely pre renal, Cr not at baseline wath for hepatorenal renal consult LR @ 100 cc/hr x 2L URINE STUDIES ORDERED RECORD URINE VOLUME STRAIGHT CATH 2. UTI Zosyn patient does not have severe sepsis at this time, decreasing platlets is due to baseline chronic liver disease and dilutional overnight with IVF and lower WBC is consistent with leukopenia from chronic disease not sepsis and come down following antibiotics Time Spent With Patient Time: Total time spent is greater than 50% in coordination of care (as documented) at patient's floor/unit and/or counseling patient: Progress Note: Quality Stroke Does the patient have a stroke diagnosis?: No
--- NOTE | 2021-10-11 10:01 | CONS_ITS ---
DATE OF SERVICE: 10/10/2021 REASON FOR CONSULTATION: I was called to see this patient to assist in the management of acute kidney injury. HISTORY OF PRESENT ILLNESS: To summarize, Prasanna is a 60-year-old woman with a history of cirrhosis due to alcohol; diabetes mellitus, requiring insulin; hyperlipidemia; and history of acute kidney injury in the past. She comes in because of elevated blood sugars and she also had increased urinary frequency with foul-smelling urine. She is currently being treated for UTI. Admission serum creatinine was 2.38, which is elevated from her baseline of 1.3 mg/dL. She usually sees Dr. Hadley in the outpatient setting at office. About a year ago she had acute kidney injury with a creatinine peaking at 9.2 mg/dL. ONGOING MEDICAL PROBLEMS: Include history of chronic kidney disease, stage 3; alcoholic cirrhosis; diabetes mellitus; hyperlipidemia. SURGICAL HISTORY: Includes cholecystectomy. FAMILY HISTORY: Not contributory to this admission. SOCIAL HISTORY: History of alcohol intake more than 3 drinks per day. She also uses marijuana. No history of any other drug abuse. ALLERGIES: NO KNOWN DRUG ALLERGIES. MEDICATIONS: Outpatient medications were reviewed. She does not take any NSAIDs. REVIEW OF SYSTEMS: Positive for dysuria, foul-smelling urine. No shortness of breath. No nausea or vomiting. No abdominal pain or constipation. No fever. No rash. All other systems were reviewed. PHYSICAL EXAMINATION: GENERAL: Prasanna is a 60-year-old woman who is comfortable. She has the plethora of liver disease including spider angioma. HEENT: Mucosa is moist. NECK: Supple. No JVD. LUNGS: Air entry equal. No rales. HEART: S1, S2 heard. No gallop or rub. ABDOMEN: Soft, nontender. Bowel sounds heard. NEUROLOGIC: Alert and awake. No asterixis. EXTREMITIES: No dependent edema. No clubbing. VITAL SIGNS: Blood pressure 119/72, pulse 82, temperature 97.6. LABORATORY DATA: Hemoglobin 10.2, platelets 32,000 and WBC 3.7. Sodium 134, potassium 4.6, BUN 23, creatinine 2.19, calcium 8.0. Urinalysis shows 2+ blood, 2+ protein with leukocyte esterase. Alcohol level was not done during this admission. Toxicology screen was not done either. 60-year-old woman with an acute kidney injury superimposed over chronic kidney disease in the setting of alcoholic cirrhosis. PROBLEM LIST: 1. Acute kidney injury superimposed on chronic kidney disease. 2. Pancytopenia. 3. Mild hyponatremia. 4. Alcoholic cirrhosis. RECOMMENDATION: Is to obtain a spot urine for sodium, creatinine and protein. Check serum complement C3, C4. Start normal saline at 50 cc/hour. Restrict oral free water intake. Further workup will be based on the outcome of the above investigations. We will follow with the team. Anjum Norris MD BPA/MODL / [id number]
--- NOTE | 2021-10-11 10:14 | HO.PM.IMPN ---
Subjective Subjective Date of Service: 10/11/21 Interval History: Seen in f/u for labile blood sugars, KWADWO that is new, UTI, pancytopenia Interval history: feels better, but renal function is worse Review of Systems no fever no dysuria Physical Exam Vital Signs: Vital Signs: Last Vital Signs Temp 96.9 F 10/11/21 08:00 Pulse 86 10/11/21 08:00 Resp 20 10/11/21 08:00 BP 100/59 L 10/11/21 08:00 Pulse Ox 100 10/11/21 08:00 O2 Del Method 10/11/21 08:00 BMI result Body Mass Index 24.8 Const: Other: General: AO X 3, no acute distress Resp: CTA bilateral CVS: S1,S2,RRR GI: +BS, NT, no distention Skin: No rash Neuro: motor grossly intact Psych: appropriate affect Objective Data Active Medications Atorvastatin Calcium (Atorvastatin Calcium 80 Mg Tablet) 80 mg PO BEDTIME [facility] Last Admin: 10/10/21 20:48 Dose: 80 mg Documented By: ROSHAN Piperacillin Sod/Tazobactam (Sod 2.25 gm/ Sodium Chloride) 50 mls @ 100 mls/hr IV Q6H [facility] Last Infusion: 10/11/21 07:26 Dose: 0 mls/hr Documented By: ANAHI Insulin Glargine (Insulin Glargine,Hum.Rec.Anlog 100 Unit/Ml 10 Ml Vial) 38 unit SUBCUT BEDTIME [facility] Last Admin: 10/10/21 20:48 Dose: 38 unit Documented By: ROSHAN Insulin Human Lispro (Insulin Lispro 100 Unit/Ml 3 Ml Vial) 0 unit SUBCUT QIDACHS [facility]; Protocol Last Admin: 10/11/21 07:54 Dose: 2 unit Documented By: ANAHI Pharmacy Consult (Consult Rx Perform Med Rec) 1 each MISCELLANE ONCE PRN PRN Reason: Consult order Pharmacy Consult (Consult Rx Etoh Phenob Po Only) 1 each MISCELLANE ONCE PRN; Protocol PRN Reason: Consult order Phenobarbital (Phenobarbital 30 Mg Tablet) 30 mg PO BID [facility]; Protocol Stop: 10/13/21 09:01 Phenobarbital (Phenobarbital 30 Mg Tablet) 30 mg PO DAILY [facility]; Protocol Stop: 10/15/21 09:01 Sodium Chloride (0.9 % Sodium Chloride Flush 3 Ml Syringe) 3 ml IVFLUSH QSHIFT [facility] Last Admin: 10/11/21 07:33 Dose: Not Given Documented By: ANAHI Non-Admin Reason: IV Running Labs CBC & Chem 7: 10/10/21 05:55 10/11/21 06:44 Labs: Laboratory Results - last 24 hr 10/10/21 10/10/21 10/10/21 11:39 15:59 20:05 Anion Gap Estim Creat Clear Calc Estimated GFR POC Glucose 283 H 320 H 243 H Random Glucose Calcium 10/11/21 10/11/21 06:44 07:19 Anion Gap 11 L Estim Creat Clear Calc 18.2 Estimated GFR 17 POC Glucose 167 H Random Glucose 186 H Calcium 7.9 L Microbiology Microbiology Results: Microbiology 10/09/21 07:40 Blood Culture - Preliminary Blood - Venous No growth after 48 hours. 10/09/21 07:40 Blood Culture - Preliminary Blood - Venous No growth after 48 hours. 10/09/21 Unknown Urine Culture - Final Urine clean catch - Clean Catch Midstream Escherichia coli Assessment and Plan (1) UTI (urinary tract infection): Status: Acute (2) KWADWO (acute kidney injury): Status: Acute (3) Weakness: Status: Acute (4) Diabetes: Status: Acute Plan 60 yo F with a PMH of IDDM, Cirrhosis, Daily alcohol use, HLD who presents to the ED with labile blood sugars. Her work up reveals UTI and KWADWO. She will be admitted for further work up and treatment. 1. Acute Kidney Injury--likely pre renal, Cr not at baseline wath for hepatorenal renal consult pending LR @ 100 cc/hr x 2L repeat chem tomorrow 2. UTI--E.coli, change Zosyn to Ceftriaxone 3. Lactic acidosis possiblye secondary to liver disease no need to repeat at this time 4. Alcoholi liver disease evidence of cirrhosis on imaging low platelets and elevated LFTs likely secondary to this advise to stop drinking 5. DM Basal+bolus patient endorses poor oral intake on going for several months; will see how her PO intake it. May need to evaluate for diabetic gastroparesis basal+bolus 6. Alcohol abuse and dependence--high risk for withdrawal -continue Phenobarbital DVT pptx -- mechanical / early ambulation due to thrombocytopenia Inpatient need: KWADWO that needs IVF for corection, complicated UTI needing IV Abx, and labile blood sugars that need med adjustment Quality Stroke Does the patient have a stroke diagnosis?: No VTE Prior VTE?: No VTE Risk Level:: Medical - moderate - high VTE Device Contraindication: N/A - Device Ordered VTE Drug Contraindication: Treatment Not Indicated
[2021-10-11] MEDS: Lactated Ringers 1,000 ML 125 ML IVCONT (10:49)
[2021-10-11 11:23] LABS: Glucose, Whole Blood 257 mg/dL (60-115)
[2021-10-11 14:25] LABS: Appearance Urine CLEAR; Color Urine YELLOW; Glucose Urine UA 500 MG/DL (NEG); Leukocyte Esterase Urine NEG (NEG); Nitrite Urine NEG (NEG); PH 6.5 (5.0-8.0); UACC Culture Trigger NO; Urine Blood 2+ (NEG); Urine Ketones NEG (NEG); Urine Protein 2+ MG/DL (NEG-TRACE)
[2021-10-11 14:35] LABS: Creatinine Urine 55.48 mg/dL; Microalbum/Creatinine Ratio Ur 142.3 ug/mg cr
[2021-10-11 14:42] LABS: RBC Urine 0-2 /HPF (0); Squamous Epithelial Cell Urine TRACE /LPF
[2021-10-11 14:43] LABS: Granular Casts Urine 0-2 /LPF; WBC Urine 0-2 /HPF (0-4)
[2021-10-11 15:01] LABS: Osmolality Urine 389 mosm/kg (373-1093)
--- NOTE | 2021-10-11 15:17 | PM.DS ---
DS: Providers Provider Date of Service: 10/11/21 Date of admission: 10/09/21 10:40 Primary care physician: YUNIER Metcalf Consults: 10/09/21 10:59 Consult to Care Team Routine Comment: Reason for consultation: Etoh use despite cirrhosis 10/10/21 11:37 Consult to Nephrology Routine Consulting Provider: Anjum Norris Reason for consultation: KWADWO Has provider been notified: No DS: Diagnosis Discharge Diagnosis (1) UTI (urinary tract infection): Status: Acute (2) KWADWO (acute kidney injury): Status: Acute (3) Weakness: Status: Acute (4) Diabetes: Status: Acute DS: Summary Hospital Course Hospital Course: Patient decided to leave A because she doesn't feel like IVF is doing anything for her, juan could not convince her, I tried to explain to her that she maybe putting herself in harms way potentilly her kidneys worseneing and even leading to premature . She was adamant she didn't want to stay any longer. She was alert, oriented to self, place and time and was able to repeat my words back in her own words. She claimed she was going to follow up with her kidney Doctor and regular doctor. It was very clear that our preference was for her to stay and continue IVF for KWADWO, antibiotics for UTI.. She was strongly advised NOT to drink Final diagnosis: KWADWO UTI Cirrhosis of liver lactic acidosis alcohol dependence Time Spent with Patient Time attestation: Total time spent providing and/or coordinating discharge services: Discharge coordination time: Greater than 30 minutes Quality: Safe Use of Opioids Does Pt have an Active Cancer Diagnosis on the Problem List?: No Quality: Stroke Does the patient have a stroke diagnosis?: No Physical Exam Vital Signs: Vital Signs: Last Vital Signs Temp 96.9 F 10/11/21 08:00 Pulse 86 10/11/21 08:00 Resp 20 10/11/21 08:00 BP 100/59 L 10/11/21 08:00 Pulse Ox 100 10/11/21 08:00 O2 Del Method 10/11/21 08:00 BMI result Body Mass Index 24.8 DS: Data Data Completed and Pending Labs on day of discharge: Laboratory Results - last 24 hr 10/10/21 10/10/21 10/11/21 15:59 20:05 06:44 Sodium 134 L Potassium 4.1 Chloride 106 Carbon Dioxide 21 L Anion Gap 11 L BUN 25 H Creatinine 2.87 H Estim Creat Clear Calc 18.2 Estimated GFR 17 POC Glucose 320 H 243 H Random Glucose 186 H Calcium 7.9 L Urine Color Urine Appearance Urine pH Ur Specific [place] Urine Protein Urine Glucose (UA) Urine Ketones Urine Blood Urine Nitrite Ur Leukocyte Esterase Urine RBC Urine WBC Ur Squamous Epith Cells Urine Bacteria Granular Casts Urine Osmolality Ur Random Sodium Urine Creatinine Urine Microalbumin Microalb/Creat Ratio 10/11/21 10/11/21 10/11/21 07:19 11:20 14:00 Sodium Potassium Chloride Carbon Dioxide Anion Gap BUN Creatinine Estim Creat Clear Calc Estimated GFR POC Glucose 167 H 257 H Random Glucose Calcium Urine Color Urine Appearance Urine pH Ur Specific [place] Urine Protein Urine Glucose (UA) Urine Ketones Urine Blood Urine Nitrite Ur Leukocyte Esterase Urine RBC Urine WBC Ur Squamous Epith Cells Urine Bacteria Granular Casts Urine Osmolality Ur Random Sodium 66.0 Urine Creatinine 55.48 Urine Microalbumin 79.0 Microalb/Creat Ratio 142.3 10/11/21 10/11/21 14:00 14:00 Sodium Potassium Chloride Carbon Dioxide Anion Gap BUN Creatinine Estim Creat Clear Calc Estimated GFR POC Glucose Random Glucose Calcium Urine Color YELLOW Urine Appearance CLEAR Urine pH 6.5 Ur Specific [place] 1.010 Urine Protein 2+ H Urine Glucose (UA) 500 H Urine Ketones NEG Urine Blood 2+ H Urine Nitrite NEG Ur Leukocyte Esterase NEG Urine RBC 0-2 Urine WBC 0-2 Ur Squamous Epith Cells TRACE Urine Bacteria NONE Granular Casts 0-2 Urine Osmolality 389 Ur Random Sodium Urine Creatinine Urine Microalbumin Microalb/Creat Ratio Preliminary micro results at discharge 10/09/21 07:40 Blood Culture - Preliminary Blood - Venous No growth after 48 hours. 10/09/21 07:40 Blood Culture - Preliminary Blood - Venous No growth after 48 hours. Discharge Plan Discharge Anticipated Discharge Date/Time: 10/11/21 15:16 Patient Disposition: Left Against Medical Advice Discharge Diagnosis: KWADWO Referrals: Smita You PA [Primary Care Provider] - 1 Week Discharge Medications: New cefuroxime axetil 500 mg tablet 500 mg PO BID Qty: 14 0RF ondansetron HCl 4 mg tablet 4 mg PO Q6H PRN (Reason: nausea and vomiting) Qty: 14 0RF No Action furosemide 20 mg tablet 1 tab PO DAILY spironolactone 50 mg tablet 1 tab PO DAILY insulin lispro [Humalog KwikPen Insulin] 100 unit/mL insulin pen See Protocol subcut [facility] Protocol: Insulin Correction Scale Less than or equal to 110 ---- Give (units): 0 111 to 150 Give (units): 0 151 to 200 Give (units): 2 201 to 250 Give (units): 4 251 to 300 Give (units): 6 301 to 350 Give (units): 8 Greater than 350 Give (units): 10 Call MD if Blood Glucose > : 350 rosuvastatin 20 mg tablet 1 tab PO BEDTIME insulin glargine [Lantus Solostar U-100 Insulin] 100 unit/mL (3 mL) insulin pen 38 unit subcut BEDTIME Discharge Orders: Discharge Order (Routine); Ordered 10/11/21 Ordered By: Tay Pascual Activity Restrictions/Additional Instructions: Please follow-up with your primary care physician tomorrow. If you have any worsening or new symptoms, please return to the emergency room or call 911 Care Plan Goals: AMA Health Concerns: AMA Plan of Treatment: AMA Assessment: AMA Patient Instructions: Acute Kidney Injury (DC), Urinary Tract Infection in Women (ED) Discharge Date/Time: 10/11/21 15:10
== END 2021-10-11 15:10 | disposition left against medical advice (07) | DRG 463 ==
LOC: HO.ED 08:56 → HO.EDOVER 10:47 → HO.IMC 22:09
PROVIDERS: Emergency Medicine; Internal Medicine Nephrology; Admitting Provider Family Medicine; Emergency Provider Internal Medicine; PCP Physician Assistant; Visit Provider Internal Medicine
DX: N39.0 Urinary tract infection, site not specified (principal); N17.9 Acute kidney failure, unspecified; D61.818 Other pancytopenia; E87.2 Acidosis; D69.6 Thrombocytopenia, unspecified; E87.1 Hypo-osmolality and hyponatremia; F10.230 Alcohol dependence with withdrawal, uncomplicated; N18.9 Chronic kidney disease, unspecified; B96.20 Unspecified Escherichia coli [E. coli] as the cause of diseases classified elsewhere; K70.30 Alcoholic cirrhosis of liver without ascites; E11.9 Type 2 diabetes mellitus without complications; E78.5 Hyperlipidemia, unspecified; Z79.4 Long term (current) use of insulin; Z79.899 Other long term (current) drug therapy
CPT/HCPCS: 36415; 71045; 74176; 80048; 80076; 81001; 82009; 82043; 82947; 83605; 83935; 84300; 84484; 85025; 85027; 87040; 87086; 87088; 87186; 87635; 93005; 96361; 96365; 96375; 99285; J0696; J2060; J2405; J2543; J2550